=== PATIENT | female | born 1995 | race Caucasian/White ===

== ENCOUNTER 2023-04-20 21:12 | Emergency (ER) | payer OTHER, SELFPAY ==
[2023-04-20] VITALS (10 sets, daily range): BP systolic 90–132; BP diastolic 65–87; PULSE 60–95; RESP 16–18; TEMP 36.8; O2SAT 99–100; BMI 19.3
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
[2023-04-20 22:58] LABS: Basophils Absolute Auto 0.03 K/uL (0.00-0.30); Basophils Percent Auto 0.5 % (0.0-3.0); Eosinophils Absolute Auto 0.01 K/uL (0.00-0.50); Eosinophils Percent Auto 0.2 % (0.0-7.0); Hematocrit 37.4 % (33.0-51.0); Hemoglobin* 12.4 gm/dL (12.0-16.0); Immature Granulocytes Abs Auto 0.01 K/uL (0.00-0.30); Immature Granulocytes Pct Auto 0.2 %; Lymphocytes Absolute Auto 1.78 K/uL (0.90-2.90); Lymphocytes Percent Auto 28.4 % (20-44); Mean Corpuscular HGB Conc 33 gm/dL (32-36); Mean Corpuscular Hemoglobin 31 pg (26-34); Mean Corpuscular Volume 92 fL (80-100); Monocytes Percent Auto 8.3 % (0.0-11.0); Neutrophils Absolute Auto 3.91 K/uL (1.7-7.0); Neutrophils Percent Auto 62.4 % (42.0-72.0); Platelet Count* 220 K/uL (140-440); RDW Coefficient of Variation % 11.8 % (11.5-15.5); Red Blood Count 4.07 m/uL (4.00-5.20); White Blood Count* 6.26 K/uL (4.50-11.00)
[2023-04-20 22:59] LABS: Appearance Urine Clear (Clear); Bilirubin Urine Negative (Negative); Blood Urine Negative (Negative); Color Urine Yellow (Yellow); Glucose Urine Negative (Negative); Ketones Urine Negative (Negative); Leukocyte Esterase Urine Negative (Negative); Nitrite Urine Negative (Negative); Protein Urine Negative (Negative); Specific Gravity Urine 1.015 (1.000-1.030); Urobilinogen Urine 0.2 (0.2-1.0); pH Urine 6.5 (5.0-8.5)
[2023-04-20 23:00] LABS: Slide Review Reflex No
[2023-04-20 23:08] LABS: RBC Urine 0-2 (0-2)
[2023-04-20 23:09] LABS: Squamous Epithelial Cell Urine Few (None-Few); WBC Urine 0-2 (0-5)
[2023-04-20 23:12] LABS: Albumin* 4.1 g/dL (3.3-5.0); Chloride* 102 mmol/L (96-114); Potassium* 3.3 mmol/L (3.6-5.1); Sodium* 138 mmol/L (135-149)
[2023-04-20 23:15] LABS: Alanine Aminotransferase* 16 U/L (4-35); Alkaline Phosphatase* 21 U/L (40-150); Aspartate Amino Transferase* 20 U/L (12-35); Bilirubin Total* 0.8 mg/dL (0.1-1.5); Blood Urea Nitrogen* 10 mg/dL (5-24); Carbon Dioxide* 28 mmol/L (20-32); Creatinine* 0.7 mg/dL (0.5-1.5); Est. Creatinine Clearance* 100.28; Estimated Glomerular Filt Rate 121 ml/min; Glucose* 93 mg/dL (60-115); Lipase* 64 U/L (23-300); Total Protein* 6.9 g/dL (6.0-8.3)
[2023-04-20 23:16] LABS: Calcium* 8.7 mg/dL (8.4-10.6)
[2023-04-21 00:02] VITALS: BP 91/63; PULSE 61; RESP 16; O2SAT 100
[2023-04-21 00:49] VITALS: BP 112/74; PULSE 78; RESP 16; TEMP 36.8; O2SAT 100
[2023-04-21 00:51] VITALS: BP 112/74; PULSE 78; RESP 16; TEMP 36.8
[2023-04-21 07:28] LABS: INR 1.05 (0.91-1.10); Partial Thromboplastin Time* 27 Seconds (23-33); Prothrombin Time 14.3 Seconds
== END 2023-04-21 00:51 | disposition home or self-care (01) ==
PROVIDERS: Emergency Provider Family Medicine
DX: S16.1XXA Strain of muscle, fascia and tendon at neck level, initial encounter (principal); V43.52XA Car driver injured in collision with other type car in traffic accident, initial encounter; Y92.411 Interstate highway as the place of occurrence of the external cause
CPT/HCPCS: 36415; 71046; 71260; 72125; 74177; 80053; 81001; 83690; 85025; 85610; 85730; 93005; 94761; 99284; 99285; 99291; Q9967